=== PATIENT | female | born 2000 | race Caucasian/White ===

== ENCOUNTER 2024-05-27 09:17 | Emergency (ER) | payer OTHER ==
[2024-05-27] MEDS ORDERED: Zofran 4 MG/2 ML VIAL ONE (09:38)
[2024-05-27] MEDS ORDERED: TYLENOL 325 MG ONE (09:38)
[2024-05-27] MEDS ORDERED: TORAdol 30 mg Injection ONE (09:38)
[2024-05-27] MEDS ORDERED: Sodium Chloride 0.9% 1000 ML 1,000 ML ONE (09:39)
[2024-05-27] MEDS: TORAdol 30 mg Injection IV ONE (09:40)
[2024-05-27] MEDS: Sodium Chloride 0.9% 1000 ML 1,000 ML IV STA (09:40)
[2024-05-27] MEDS: Zofran 4 MG/2 ML VIAL IV ONE (09:40)
[2024-05-27] MEDS: TYLENOL 325 MG PO ONE (09:40)
[2024-05-27 09:53] VITALS: TEMP 98.7
[2024-05-27 10:00] LABS: Absolute Neutrophil Ct (ANC) 5.64 x10^3/uL (1.56-6.13); BASOPHIL % 0.3 % (0.1-1.2); Basophil (Absolute #) 0.02 x10^3/uL (0.01-0.08); Eosinophil % 0.4 % (0.7-5.8); Eosinophil (Absolute #) 0.03 x10^3/uL (0.04-0.36); Hematocrit 40.8 % (34.1-44.9); Hemoglobin 13.4 g/dL (11.2-15.7); IMMATURE GRAN # 0.03 x10^3u/L (0.001-0.031); IMMATURE GRAN % 0.4 % (0.001-0.429); Lymphocyte (Absolute #) 0.73 x10^3/uL (1.18-3.74); Lymphocytes % 10.4 % (19.3-51.7); Mean Cell Volume 89.1 fL (79.4-94.8); Mean Corpuscular Hemoglobin 29.3 pg (25.6-32.2); Mean Corpuscular Hgb Concent. 32.8 g/dL (32.2-35.5); Mean Platelet Volume 9.7 fL (9.4-12.3); Monocyte (Absolute #) 0.58 x10^3/uL (0.24-0.86); Monocytes % 8.3 % (4.7-12.5); Neutrophil % 80.2 % (34.0-71.1); Platelet Count 183 x10^3/uL (182-369); Red Blood Count 4.58 x10^6/uL (3.93-5.22); Red Cell Distribution Width 12.8 % (11.7-14.4)
[2024-05-27 10:12] LABS: HCG SERUM TEST NEGATIVE (NEGATIVE)
[2024-05-27 10:34] LABS: ALBUMIN 4.4 g/dL (3.5-5.0); ANION GAP 13.4 MEQ/L (5-15); BILIRUBIN,TOTAL 0.8 mg/dL (0.2-1.3); Calcium 8.7 mg/dL (8.4-10.2); Creatinine 1 0.64 mg/dL (0.52-1.04); EST GLOMERULAR FILTRATION RATE 127.3 ML/MIN; MAGNESIUM 1.8 mg/dL (1.6-2.3); Potassium 3.6 mmol/L (3.5-5.1); TROPONIN 0.015 ng/mL (0.000-0.033); Total Protein 6.9 g/dL (6.3-8.2)
[2024-05-27 10:35] VITALS: RESP 18
[2024-05-27 10:37] LABS: INFLUENZA A NEGATIVE (NEGATIVE); INFLUENZA B NEGATIVE (NEGATIVE); RESPIRATORY SYNCTIAL VIRUS NEGATIVE (NEGATIVE); SARS-CoV-2 Xpert Express NEGATIVE (NEGATIVE)
[2024-05-27 10:57] LABS: Appearance Cloudy (Clear); Bacteria Many /HPF (None Seen); Bilirubin Negative (Negative); Blood Negative (Negative); Epithelial Cells Many /HPF (None Seen); Glucose, Urine Negative (Negative); Hyaline Casts NONE SEEN /LPF (0-2); Ketones Negative (Negative); Leukocyte Esterase Moderate (Negative); Nitrite Negative (Negative); Ph 7.5 (4.6-8.0); Protein,Urine Dip 30 (Negative); Specific Gravity >=1.030 (1.005-1.030); WBC 51-100 /HPF (0-5)
[2024-05-27 11:17] LABS: ADD URINE CULTURE? YES (NO)
--- NOTE | 2024-05-27 11:34 | ERPHSYRPT ---
- History of Present Illness Time Seen by Provider: 05/27/24 09:23 Source: patient, family Exam Limitations: no limitations Patient Subjective Stated Complaint: chest pain, shortness of breath Triage Nursing Assessment: pt to ED c/o chest pain, SOB, body aches, fever started yesterday. patient was swimming at the pool and felt sx come on suddenly , worsening over the night. states her significant other and daughter have both been sick with upper respiratory illnesses recently and thinks she caught something from them. reports 100.2 fever at home this am but was afebrile on arrival to ED. no tylneol or ibuprofen taken. pepto taken last night with no relief. Physician History: 23 years old female with history of anxiety/depression on Lexapro presented in the ER with flulike symptoms since yesterday. Patient reports having chest pain, body aches, no cough but some shortness of breath at times with associated abdominal cramping with nausea and multiple episodes of loose watery stool. She is not able to hold much down. Patient reports low-grade temperature of 100.2 earlier today. Reports positive sick contact with other family members who had similar symptoms last week. History of coronary artery disease. Allergies/Adverse Reactions: No Known Drug Allergies Allergy (Unverified 05/27/24 09:23) Home Medications: Escitalopram Oxalate [Lexapro] 20 mg PO DAILY 05/27/24 [History] Hx Tetanus, Diphtheria Vaccination/Date Given: Yes Hx Influenza Vaccination/Date Given: Yes Hx Pneumococcal Vaccination/Date Given: No Travel Risk - International Travel Have you traveled outside of the country in past 3 weeks: No - Emerging Infectious Disease Are you exhibiting symptoms associated with any current EIDs: Yes Symptoms: Diarrhea, Fever, Headaches/Body Aches/, Shortness of Breath - Review of Systems Constitutional: Fatigue, Weakness Eyes: No Symptoms Ears, Nose, & Throat: Throat Pain Respiratory: No Symptoms Cardiac: Chest Pain Abdominal/Gastrointestinal: Abdominal Pain, Nausea, Diarrhea Genitourinary Symptoms: No Symptoms Musculoskeletal: Myalgias Skin: No Symptoms Neurological: Headache Psychological: Anxiety, Depression Endocrine: No Symptoms Hematologic/Lymphatic: No Symptoms Immunological/Allergic: No Symptoms - Past Medical History Pertinent Past Medical History: Yes Psycho-Social History: Anxiety - Past Surgical History Past Surgical History: Yes Female Surgical History: Section - Female History Hx Last Menstrual Period: last month Hx Now: (unkn) - Social History Smoking Status: Never smoker Exposure to second hand smoke: No Drug Use: none - Social Determinants of Health Will the patient participate in the screening: Yes Do you worry about a steady place to live?: No Do you have any problems with any of the following?: No known problems In the past 12 months,have you had to go without utilities?: No Transportation Issues: No Has anyone in your support network made you feel unsafe?: No Have you or anyone in your house had to go without enough: No - Nursing Vital Signs Nursing Vital Signs: Initial Vital Signs Temperature 98.7 F 05/27/24 09:24 Pulse Rate 91 H 05/27/24 09:24 Respiratory Rate 20 05/27/24 09:24 Blood Pressure 116/74 05/27/24 09:24 O2 Sat by Pulse Oximetry 97 05/27/24 09:24 Pain Scale Pain Intensity 7 - Physical Exam General Appearance: no apparent distress, alert Eye Exam: PERRL/EOMI, eyes nml inspection Ears, Nose, Throat Exam: normal ENT inspection, TMs normal, pharynx normal, moist mucous membranes Neck Exam: normal inspection, non-tender, supple, full range of motion, other (No signs of meningismus), No meningismus, No midline tenderness Respiratory Exam: normal breath sounds, lungs clear Cardiovascular Exam: regular rate/rhythm, normal heart sounds Gastrointestinal/Abdomen Exam: soft, normal bowel sounds, No tenderness Back Exam: normal inspection, normal range of motion Neurologic Exam: alert, oriented x 3, cooperative, radio mechanic II-XII nml as tested Skin Exam: normal color SpO2 Interpretation: normal SpO2: 99 O2 Delivery: Room Air - Course EKG Interpreted by Me: RATE (86), Sinus Rhythm, NORMAL AXIS, NORMAL INTERVALS, NORMAL QRS Ordered Tests: Active Orders 24 hr Category Date Time Status EKG-ER Only STAT Care 05/27/24 09:30 Active IV Insertion STAT Care 05/27/24 09:30 Active NPO (ED) STAT Care 05/27/24 09:30 Active CHEST 1 VIEW (PORTABLE) Stat Exams 05/27/24 09:31 Taken BLOOD CULTURE Stat Lab 05/27/24 09:33 Received CBC W DIFF Stat Lab 05/27/24 09:53 Completed CMP Stat Lab 05/27/24 09:53 Completed CULTURE,URINE Stat Lab 05/27/24 10:35 Received HCG QUALITATIVE, SERUM Stat Lab 05/27/24 09:53 Completed LIPASE Stat Lab 05/27/24 09:53 Completed MAGNESIUM Stat Lab 05/27/24 09:53 Completed TROPONIN Q4H Lab 05/27/24 09:53 Completed TROPONIN Q4H Lab 05/27/24 13:30 Ordered TROPONIN Q4H Lab 05/27/24 17:30 Ordered UA W/RFX UR CULTURE Stat Lab 05/27/24 10:35 Completed Medication Summary Discontinued Medications Generic Name Dose Route Start Last Admin Trade Name Merry PRN Reason Stop Dose Admin Acetaminophen 975 mg 05/27/24 09:30 05/27/24 09:40 Acetaminophen 325 Mg Tablet PO 05/27/24 09:31 975 mg STAT ONE Administration Acetaminophen Confirm 05/27/24 09:38 Acetaminophen 325 Mg Tablet Administered 05/27/24 09:39 Dose 975 mg .ROUTE .STK-MED ONE Sodium Chloride 1,000 mls @ 999 mls/hr 05/27/24 09:30 05/27/24 10:41 Sodium Chloride 0.9% 1000 Ml IV 05/27/24 10:30 Infused .Q1H1M STA Infusion Sodium Chloride Confirm 05/27/24 09:39 Sodium Chloride 0.9% 1000 Ml Administered 05/27/24 09:40 Dose 1,000 mls @ ud .ROUTE .STK-MED ONE Ketorolac Tromethamine 30 mg 05/27/24 09:30 05/27/24 09:40 Ketorolac Tromethamine 30 Mg/Ml Inj IV 05/27/24 09:31 30 mg STAT ONE Administration Ketorolac Tromethamine Confirm 05/27/24 09:38 Ketorolac Tromethamine 30 Mg/Ml Inj Administered 05/27/24 09:39 Dose 30 mg .ROUTE .STK-MED ONE Ondansetron HCl 4 mg 05/27/24 09:30 05/27/24 09:40 Ondansetron Hcl 4 Mg/2 Ml Vial IV 05/27/24 09:31 4 mg STAT ONE Administration Ondansetron HCl Confirm 05/27/24 09:38 Ondansetron Hcl 4 Mg/2 Ml Vial Administered 05/27/24 09:39 Dose 4 mg .ROUTE .STK-MED ONE Lab/Rad Data: Laboratory Result Diagrams 05/27/24 09:53 05/27/24 09:53 Laboratory Results 05/27/24 05/27/24 05/27/24 Range/Units 10:35 09:53 09:53 WBC (3.98-10.04) x10^3/uL RBC (3.93-5.22) x10^6/uL Hgb (11.2-15.7) g/dL Hct (34.1-44.9) % MCV (79.4-94.8) fL MCH (25.6-32.2) pg MCHC (32.2-35.5) g/dL RDW (11.7-14.4) % Plt Count (182-369) x10^3/uL MPV (9.4-12.3) fL Gran % (34.0-71.1) % Immature Gran % (Auto) (0.001-0.429) % Nucleat RBC Rel Count (0.00-0.2) % Eos # (Auto) (0.04-0.36) x10^3/uL Immature Gran # (Auto) (0.001-0.031) x10^3u/L Absolute Lymphs (auto) (1.18-3.74) x10^3/uL Absolute Monos (auto) (0.24-0.86) x10^3/uL Absolute Nucleated RBC (0.00-0.012) x10^3u/L Lymphocytes % (19.3-51.7) % Monocytes % (4.7-12.5) % Eosinophils % (0.7-5.8) % Basophils % (0.1-1.2) % Absolute Granulocytes (1.56-6.13) x10^3/uL Basophils # (0.01-0.08) x10^3/uL Sodium (135-145) mmol/L Potassium (3.5-5.1) mmol/L Chloride (98-107) mmol/L Carbon Dioxide (22-30) mmol/L Anion Gap (5-15) MEQ/L BUN (7-17) mg/dL Creatinine (0.52-1.04) mg/dL Estimated GFR ML/MIN Glucose (74-106) mg/dL Calcium (8.4-10.2) mg/dL Magnesium (1.6-2.3) mg/dL Total Bilirubin (0.2-1.3) mg/dL AST (14-36) U/L ALT (0-35) U/L Alkaline Phosphatase (38-126) U/L Troponin I (0.000-0.033) ng/mL Serum Total Protein (6.3-8.2) g/dL Albumin (3.5-5.0) g/dL Lipase (23-300) U/L Serum HCG, Qual NEGATIVE (NEGATIVE) Urine Color Yellow (Yellow) Urine Appearance Cloudy A (Clear) Urine pH 7.5 (4.6-8.0) Ur Specific [place] >=1.030 A (1.005-1.030) Urine Protein 30 (Negative) Urine Glucose (UA) Negative (Negative) mg/dL Urine Ketones Negative (Negative) Urine Blood Negative (Negative) Urine Nitrite Negative (Negative) Urine Bilirubin Negative (Negative) Urine Urobilinogen 1.0 A (0.2) mg/dL Ur Leukocyte Esterase Moderate A (Negative) U Hyaline Cast (Auto) NONE SEEN (0-2) /LPF Urine Microscopic RBC 3-5 (0-5) /HPF Urine Microscopic WBC 51-100 A (0-5) /HPF Ur Epithelial Cells Many A (None Seen) /HPF Urine Bacteria Many A (None Seen) /HPF Urine Culture Reflexed YES (NO) Influenza Type A Ag NEGATIVE (NEGATIVE) Influenza Type B Ag NEGATIVE (NEGATIVE) RSV (PCR) NEGATIVE (NEGATIVE) SARS-CoV-2 (PCR) NEGATIVE (NEGATIVE) 05/27/24 05/27/24 Range/Units 09:53 09:53 WBC 7.0 (3.98-10.04) x10^3/uL RBC 4.58 (3.93-5.22) x10^6/uL Hgb 13.4 (11.2-15.7) g/dL Hct 40.8 (34.1-44.9) % MCV 89.1 (79.4-94.8) fL MCH 29.3 (25.6-32.2) pg MCHC 32.8 (32.2-35.5) g/dL RDW 12.8 (11.7-14.4) % Plt Count 183 (182-369) x10^3/uL MPV 9.7 (9.4-12.3) fL Gran % 80.2 H (34.0-71.1) % Immature Gran % (Auto) 0.4 (0.001-0.429) % Nucleat RBC Rel Count 0.0 (0.00-0.2) % Eos # (Auto) 0.03 L (0.04-0.36) x10^3/uL Immature Gran # (Auto) 0.03 (0.001-0.031) x10^3u/L Absolute Lymphs (auto) 0.73 L (1.18-3.74) x10^3/uL Absolute Monos (auto) 0.58 (0.24-0.86) x10^3/uL Absolute Nucleated RBC 0.00 (0.00-0.012) x10^3u/L Lymphocytes % 10.4 L (19.3-51.7) % Monocytes % 8.3 (4.7-12.5) % Eosinophils % 0.4 L (0.7-5.8) % Basophils % 0.3 (0.1-1.2) % Absolute Granulocytes 5.64 (1.56-6.13) x10^3/uL Basophils # 0.02 (0.01-0.08) x10^3/uL Sodium 139 (135-145) mmol/L Potassium 3.6 (3.5-5.1) mmol/L Chloride 108 H (98-107) mmol/L Carbon Dioxide 22 (22-30) mmol/L Anion Gap 13.4 (5-15) MEQ/L BUN 13 (7-17) mg/dL Creatinine 0.64 (0.52-1.04) mg/dL Estimated GFR 127.3 ML/MIN Glucose 117 H (74-106) mg/dL Calcium 8.7 (8.4-10.2) mg/dL Magnesium 1.8 (1.6-2.3) mg/dL Total Bilirubin 0.80 (0.2-1.3) mg/dL AST 22 (14-36) U/L ALT 18 (0-35) U/L Alkaline Phosphatase 65 (38-126) U/L Troponin I 0.015 (0.000-0.033) ng/mL Serum Total Protein 6.9 (6.3-8.2) g/dL Albumin 4.4 (3.5-5.0) g/dL Lipase 44 (23-300) U/L Serum HCG, Qual (NEGATIVE) Urine Color (Yellow) Urine Appearance (Clear) Urine pH (4.6-8.0) Ur Specific [place] (1.005-1.030) Urine Protein (Negative) Urine Glucose (UA) (Negative) mg/dL Urine Ketones (Negative) Urine Blood (Negative) Urine Nitrite (Negative) Urine Bilirubin (Negative) Urine Urobilinogen (0.2) mg/dL Ur Leukocyte Esterase (Negative) U Hyaline Cast (Auto) (0-2) /LPF Urine Microscopic RBC (0-5) /HPF Urine Microscopic WBC (0-5) /HPF Ur Epithelial Cells (None Seen) /HPF Urine Bacteria (None Seen) /HPF Urine Culture Reflexed (NO) Influenza Type A Ag (NEGATIVE) Influenza Type B Ag (NEGATIVE) RSV (PCR) (NEGATIVE) SARS-CoV-2 (PCR) (NEGATIVE) - Progress Progress: improved Progress Note: 05/27/24 11:32 23-year-old with history of anxiety/depression is evaluated for flulike symptoms since yesterday with bodyaches fatigue tiredness, lack of energy, chest tig htness pressure, occasional shortness of breath with activity along with abdominal cramping multiple episodes of loose stool and nausea. Patient had a low-grade temperature earlier but afebrile here. EKG is normal sinus rhythm with no acute ischemic changes. She is given Zofran along with Toradol/Tylenol and fluids, on reevaluation feeling much improved. Workup showed normal white count, fairly unremarkable chemistries, negative troponins. Chest x-ray negative for any acute cardiopulmonary findings reviewed by me, official report is pending. Abdominal exam is soft nontender with good bowel sounds, do not think needs imaging. UA is not a clean sample, will wait for if cultures are done and start medication based on that. Patient has low heart score. With her pain going on since yesterday I do not think patient needs second troponin to rule it out. I believe patient symptoms are secondary to viral etiology, recommended supportive care and will give Zofran to go home. Discussed signs symptoms of worsening needing return to ER which she seems understanding. Stable for discharge. COVID flu RSV are negative. Counseled pt/family regarding: lab results, diagnosis, need for follow-up, rad results Medical Desision Making - Diagnostic Testing Diagnostic test were ordered, analyzed, and reviewed by me: Yes Radiological Interpretation: Interpreted by me, Reviewed by me - Risk of complications The pt has a mod risk of morbidity or mortality based on: Need for prescription drug management - Departure Departure Disposition: Home Clinical Impression: Viral syndrome, Gastroenteritis Condition: Stable Critical Care Time: No Referrals: ISIAH VILLAR NP [Primary Care Provider] - Follow up/PCP as directed Instructions: Viral gastroenteritis in adults, Chest Pain (DC) Additional Instructions: Drink plenty of fluids. Take Tylenol/Zofran as needed. Follow-up with primary care for reevaluation. Return to ER for intractable diarrhea/vomiting/chest or abdominal pain, persistent high-grade fever chills etc. Prescriptions: Ondansetron ODT 4 MG [Zofran Odt 4 mg] 1 ea PO QIDPRN PRN #7 tablet PRN Reason: n/v
[2024-05-27 11:57] VITALS: BP 84/50; PULSE 67; O2SAT 97
--- NOTE | 2024-05-27 19:07 | XRAY ---
Indication: Chest pain. Comparison: None Portable apical lordotic chest demonstrates normal heart and lungs. Bony thorax intact with minimal levoscoliosis.
== END 2024-05-27 12:05 | disposition home or self-care (01) ==
LOC: ED 09:17
DX: B34.9 Viral infection, unspecified (principal); A08.4 Viral intestinal infection, unspecified; R07.9 Chest pain, unspecified; M79.10 Myalgia, unspecified site; R06.02 Shortness of breath; R10.9 Unspecified abdominal pain; R11.0 Nausea; R19.7 Diarrhea, unspecified; Z79.899 Other long term (current) drug therapy
CPT/HCPCS: 0241U; 36000; 36415; 71045; 80053; 81001; 83690; 83735; 84484; 84703; 85025; 87040; 87086; 93005; 96374; 96375; 99284; J1885; J2405; A9270-GY